=== PATIENT | male | born 1985 | race African-American/Black ===

== ENCOUNTER 2016-12-04 12:45 | Emergency (ER) | payer OTHER ==
[~2016-12-04] VITALS: Ht 172.7 cm; Wt 70.0 kg
[2016-12-04 12:52] VITALS: Ht 172.7 cm; Wt 70.0 kg
[2016-12-04] MEDS ORDERED: IBUPROFEN 600 MG TAB PO ONE (13:00)
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
== END 2016-12-04 14:18 | disposition home or self-care (01) ==
LOC: E/R 12:45
DX: F15.10 Other stimulant abuse, uncomplicated (principal)
CPT/HCPCS: 99283

== ENCOUNTER 2017-12-25 15:13 | Emergency (ER) | END 2017-12-25 17:07 | disposition home or self-care (01) ==